=== PATIENT | female | born 1985 | race African-American/Black ===

== ENCOUNTER 2022-03-05 22:21 | Inpatient (IN) | payer SELFPAY ==
[~2022-03-05] VITALS: Ht 162.6 cm; Wt 75.0 kg
[2022-03-05] MEDS ORDERED: DEPO150I12 IM (23:08)
[2022-03-05] MEDS ORDERED: ONDANSETRON 4MG/2ML VIAL IV ONE (23:20)
[2022-03-05] MEDS: MORPHINE 4 MG/ML 1ML VIAL/SYRINGE IV PRN (23:35)
[2022-03-05 23:37] LABS: BASO % 0.1 % (0.0-1.0); EOS % 0.3 % (0.0-3.0); HEMATOCRIT 31.8 % (36.0-47.0); HEMOGLOBIN 10.2 g/dl (12.0-15.5); LYMPH # 1.8 10^3/uL (1.5-5.0); LYMPH % 16.4 % (24.0-44.0); MEAN CORPUSCULAR HEMOGLOBIN 24.1 pg (27.0-33.0); MEAN CORPUSCULAR HGB CONC 32.1 g/dl (32.0-36.5); MONO # 1.1 10^3/uL (0.0-0.8); MONO % 10.3 % (2.0-8.0); NEUTROPHILS # 7.7 10^3/uL (1.5-8.5); NEUTROPHILS % 72.3 % (36.0-66.0); PLATELET COUNT, AUTOMATED 315 10^3/uL (150-450); RED BLOOD COUNT 4.24 10^6/uL (4.00-5.40); WHITE BLOOD COUNT 10.7 10^3/uL (4.0-10.0)
[2022-03-06] VITALS (7 sets, daily range): BP systolic 100–145; BP diastolic 67–80
[2022-03-06 00:12] LABS: BLOOD UREA NITROGEN 14 MG/DL (7-18); CALCIUM LEVEL 9.2 MG/DL (8.5-10.1); CARBON DIOXIDE LEVEL 22 MEQ/L (21-32); CHLORIDE LEVEL 108 MEQ/L (98-107); CREATININE FOR GFR 0.76 MG/DL (0.55-1.30); GLOMERULAR FILTRATION RATE > 60.0 (>60); GLUCOSE, FASTING 103 MG/DL (70-100); POTASSIUM SERUM 4.1 MEQ/L (3.5-5.1); SODIUM LEVEL 141 MEQ/L (136-145)
[2022-03-06] MEDS: MORPHINE 4 MG/ML 1ML VIAL/SYRINGE IV PRN (00:30)
[2022-03-06 00:41] LABS: RSV AMPLIFICATION NEGATIVE (NEGATIVE)
[2022-03-06] MEDS ORDERED: HOME MED LIST COMPLETE! XX SCH (00:45)
[2022-03-06] MEDS ORDERED: NS 1,000 ML IV SCH ×2 (01:05→12:00)
[2022-03-06] MEDS ORDERED: HYDROMORPHONE HCL 0.5 MG/ 0.5 ML SYRINGE (J1170 PER 1) IV PRN ×2 (01:05→11:55)
[2022-03-06 06:21] LABS: HEMOGLOBIN 9.7 g/dl (12.0-15.5); MEAN CORPUSCULAR HEMOGLOBIN 23.3 pg (27.0-33.0); MEAN CORPUSCULAR HGB CONC 30.3 g/dl (32.0-36.5); MEAN CORPUSCULAR VOLUME 76.9 fl (80.0-96.0); PLATELET COUNT, AUTOMATED 300 10^3/uL (150-450); RED BLOOD COUNT 4.16 10^6/uL (4.00-5.40)
[2022-03-06 06:56] LABS: ALT/SGPT 61 U/L (12-78); BILIRUBIN,DIRECT 0.1 MG/DL (0.0-0.2); BILIRUBIN,TOTAL 0.5 MG/DL (0.2-1.0); TOTAL PROTEIN 7.2 GM/DL (6.4-8.2)
[2022-03-06] MEDS ORDERED: MORPHINE 2 MG/ML 1ML VIAL IV PRN ×2 (08:00)
[2022-03-06 08:48] LABS: BLOOD UREA NITROGEN 14 MG/DL (7-18); CALCIUM LEVEL 9.2 MG/DL (8.5-10.1); CARBON DIOXIDE LEVEL 24 MEQ/L (21-32); CHLORIDE LEVEL 111 MEQ/L (98-107); CREATININE FOR GFR 0.74 MG/DL (0.55-1.30); GLOMERULAR FILTRATION RATE > 60.0 (>60); GLUCOSE, FASTING 96 MG/DL (70-100); POTASSIUM SERUM 4.1 MEQ/L (3.5-5.1); SODIUM LEVEL 143 MEQ/L (136-145)
[2022-03-06] MEDS ORDERED: LIDOCAINE 1% MDV 20ML VIAL As Ordered ONE (08:58)
[2022-03-06] MEDS ORDERED: BUPIVACAINE HCL 0.25% 10ML VIAL As Ordered ONE (08:58)
[2022-03-06] MEDS ORDERED: TRANEXAMIC ACID 100 MG/ML 10ML VIAL As Ordered ONE (08:58)
[2022-03-06] MEDS ORDERED: ceFAZolin 1GM VIAL (J0690 PER 500MG) As Ordered ONE (09:00)
[2022-03-06] MEDS ORDERED: propofoL 200 MG/20 ML VIAL As Ordered ONE (09:10)
[2022-03-06] MEDS ORDERED: LIDOCAINE 2% 100MG/5ML SDV (FOR ANES.) As Ordered ONE (09:10)
[2022-03-06] MEDS ORDERED: fentaNYL 100 MCG/2 ML INJECTION As Ordered ONE (09:11)
[2022-03-06] MEDS ORDERED: MIDAZOLAM INJ 2MG/2ML VIAL (J2250 PER 1MG) As Ordered ONE (09:12)
[2022-03-06] MEDS ORDERED: PHENYLephrine 500MCG 5ML (100MCG/ML) SYRINGE As Ordered ONE (11:32)
[2022-03-06] MEDS ORDERED: KETOROLAC 60MG 2ML VIAL As Ordered ONE (11:32)
[2022-03-06] MEDS ORDERED: oxyCODONE 5MG TAB PO PRN (11:55)
[2022-03-06] MEDS ORDERED: fentaNYL 100 MCG/2 ML INJECTION IV PRN (11:55)
[2022-03-06] MEDS ORDERED: ONDANSETRON 4MG/2ML VIAL IV PRN (11:55)
[2022-03-06] MEDS ORDERED: LR 1,000 ML IV SCH (11:55)
[2022-03-06] MEDS ORDERED: ceFAZolin SOD 2 GM in IV 1 EA IV ONE (17:00)
[2022-03-06] MEDS ORDERED: ENOXAPARIN 40MG/0.4ML SYRINGE (J1650 PER 10MG) SC SCH (18:00)
[2022-03-06] MEDS ORDERED: MORPHINE 2 MG/ML 1ML VIAL IV STA (18:11)
[2022-03-06] MEDS ORDERED: PERC5TAB12 PO (18:58)
[2022-03-06] MEDS ORDERED: ASPI81CH33 PO (18:59)
[2022-03-06] MEDS ORDERED: RAMELTEON 8 MG TAB (ROZEREM) PO PRN (19:45)
[2022-03-06] MEDS ORDERED: hydrOXYzine 25 MG TAB PO ONE (20:10)
[2022-03-06] MEDS ORDERED: MORPHINE 2 MG/ML 1ML VIAL IV ONE (21:15)
[2022-03-06] MEDS: PERCOCET 5MG/325MG TAB PO PRN (22:38)
[2022-03-07 02:00] VITALS: BP 116/78
[2022-03-07] MEDS: MORPHINE 2 MG/ML 1ML VIAL IV PRN ×2 (03:16→07:33)
[2022-03-07] MEDS: PERCOCET 5MG/325MG TAB PO PRN ×3 (04:42→16:47)
[2022-03-07 06:00] VITALS: BP 106/78
[2022-03-07 07:43] LABS: BLOOD UREA NITROGEN 11 MG/DL (7-18); CALCIUM LEVEL 8.3 MG/DL (8.5-10.1); CARBON DIOXIDE LEVEL 25 MEQ/L (21-32); CHLORIDE LEVEL 106 MEQ/L (98-107); CREATININE FOR GFR 0.69 MG/DL (0.55-1.30); GLOMERULAR FILTRATION RATE > 60.0 (>60); GLUCOSE, FASTING 86 MG/DL (70-100); POTASSIUM SERUM 4.3 MEQ/L (3.5-5.1); SODIUM LEVEL 138 MEQ/L (136-145)
[2022-03-07 08:55] LABS: HEMATOCRIT 30.4 % (36.0-47.0); HEMOGLOBIN 9.4 g/dl (12.0-15.5); MEAN CORPUSCULAR HEMOGLOBIN 23.8 pg (27.0-33.0); MEAN CORPUSCULAR HGB CONC 30.9 g/dl (32.0-36.5); PLATELET COUNT, AUTOMATED 271 10^3/uL (150-450); RED BLOOD COUNT 3.95 10^6/uL (4.00-5.40); WHITE BLOOD COUNT 6.5 10^3/uL (4.0-10.0)
[2022-03-07] MEDS ORDERED: KETOROLAC 30 MG/ML 1ML VIAL IV ONE (09:00)
[2022-03-07 10:00] VITALS: BP 107/77
[2022-03-07 14:00] VITALS: BP 111/73
[2022-03-07] MEDS: IBUPROFEN 600MG TAB PO SCH ×2 (16:46→21:57)
[2022-03-07 18:00] VITALS: BP 116/76
[2022-03-07 22:00] VITALS: BP 113/76
[2022-03-08 02:00] VITALS: BP 103/70
[2022-03-08 05:57] LABS: HEMATOCRIT 33.1 % (36.0-47.0); HEMOGLOBIN 10.1 g/dl (12.0-15.5); MEAN CORPUSCULAR HEMOGLOBIN 23.3 pg (27.0-33.0); MEAN CORPUSCULAR HGB CONC 30.5 g/dl (32.0-36.5); MEAN CORPUSCULAR VOLUME 76.4 fl (80.0-96.0); PLATELET COUNT, AUTOMATED 282 10^3/uL (150-450); RED BLOOD COUNT 4.33 10^6/uL (4.00-5.40); WHITE BLOOD COUNT 5.4 10^3/uL (4.0-10.0)
[2022-03-08 06:00] VITALS: BP_SYST 113; BP_DIAS 70; BP_DIAS 76
[2022-03-08 06:29] LABS: ALBUMIN 2.9 GM/DL (3.2-5.2); ALT/SGPT 53 U/L (12-78); BILIRUBIN,TOTAL 0.3 MG/DL (0.2-1.0); BLOOD UREA NITROGEN 11 MG/DL (7-18); CALCIUM LEVEL 8.7 MG/DL (8.5-10.1); CARBON DIOXIDE LEVEL 25 MEQ/L (21-32); CHLORIDE LEVEL 108 MEQ/L (98-107); CREATININE FOR GFR 0.73 MG/DL (0.55-1.30); GLOMERULAR FILTRATION RATE > 60.0 (>60); GLUCOSE, FASTING 91 MG/DL (70-100); POTASSIUM SERUM 4.4 MEQ/L (3.5-5.1); SODIUM LEVEL 139 MEQ/L (136-145); TOTAL PROTEIN 6.7 GM/DL (6.4-8.2)
[2022-03-08] MEDS: IBUPROFEN 600MG TAB PO SCH ×3 (09:18→21:29)
[2022-03-08] MEDS: ENOXAPARIN 40MG/0.4ML SYRINGE (J1650 PER 10MG) SC SCH (09:19)
[2022-03-08 10:00] VITALS: BP 115/77
[2022-03-08 14:00] VITALS: BP 116/78
[2022-03-08] MEDS: PERCOCET 5MG/325MG TAB PO PRN (16:23)
[2022-03-08 20:00] VITALS: BP 119/80
[2022-03-08 22:00] VITALS: BP 119/80
[2022-03-09 02:00] VITALS: BP 110/73
[2022-03-09 06:00] VITALS: BP_SYST 110; BP_SYST 111; BP_DIAS 73
[2022-03-09 06:05] LABS: HEMATOCRIT 33.3 % (36.0-47.0); HEMOGLOBIN 10.3 g/dl (12.0-15.5); MEAN CORPUSCULAR HEMOGLOBIN 23.6 pg (27.0-33.0); MEAN CORPUSCULAR HGB CONC 30.9 g/dl (32.0-36.5); MEAN CORPUSCULAR VOLUME 76.4 fl (80.0-96.0); PLATELET COUNT, AUTOMATED 269 10^3/uL (150-450); RED BLOOD COUNT 4.36 10^6/uL (4.00-5.40); WHITE BLOOD COUNT 4.6 10^3/uL (4.0-10.0)
[2022-03-09 06:41] LABS: ALBUMIN 2.9 GM/DL (3.2-5.2); ALT/SGPT 68 U/L (12-78); BILIRUBIN,TOTAL 0.2 MG/DL (0.2-1.0); BLOOD UREA NITROGEN 18 MG/DL (7-18); CALCIUM LEVEL 8.7 MG/DL (8.5-10.1); CARBON DIOXIDE LEVEL 25 MEQ/L (21-32); CHLORIDE LEVEL 110 MEQ/L (98-107); CREATININE FOR GFR 0.71 MG/DL (0.55-1.30); GLOMERULAR FILTRATION RATE > 60.0 (>60); GLUCOSE, FASTING 97 MG/DL (70-100); POTASSIUM SERUM 4.2 MEQ/L (3.5-5.1); SODIUM LEVEL 141 MEQ/L (136-145); TOTAL PROTEIN 6.6 GM/DL (6.4-8.2)
[2022-03-09 10:00] VITALS: BP 114/72
[2022-03-09] MEDS: ENOXAPARIN 40MG/0.4ML SYRINGE (J1650 PER 10MG) SC SCH (10:54)
[2022-03-09] MEDS: IBUPROFEN 600MG TAB PO SCH ×3 (10:55→22:06)
[2022-03-09 14:00] VITALS: BP 116/73
[2022-03-09 18:00] VITALS: BP 130/92
[2022-03-09 22:10] VITALS: BP 133/89
[2022-03-10 04:00] VITALS: BP 116/72
[2022-03-10 06:01] LABS: HEMATOCRIT 34.3 % (36.0-47.0); HEMOGLOBIN 10.6 g/dl (12.0-15.5); MEAN CORPUSCULAR HEMOGLOBIN 23.6 pg (27.0-33.0); MEAN CORPUSCULAR HGB CONC 30.9 g/dl (32.0-36.5); MEAN CORPUSCULAR VOLUME 76.4 fl (80.0-96.0); PLATELET COUNT, AUTOMATED 301 10^3/uL (150-450); RED BLOOD COUNT 4.49 10^6/uL (4.00-5.40)
[2022-03-10 06:31] LABS: BLOOD UREA NITROGEN 18 MG/DL (7-18); CALCIUM LEVEL 9.4 MG/DL (8.5-10.1); CARBON DIOXIDE LEVEL 22 MEQ/L (21-32); CHLORIDE LEVEL 110 MEQ/L (98-107); CREATININE FOR GFR 0.62 MG/DL (0.55-1.30); GLOMERULAR FILTRATION RATE > 60.0 (>60); GLUCOSE, FASTING 103 MG/DL (70-100); POTASSIUM SERUM 4.3 MEQ/L (3.5-5.1); SODIUM LEVEL 140 MEQ/L (136-145)
[2022-03-10] MEDS: IBUPROFEN 600MG TAB PO SCH ×3 (09:40→23:10)
[2022-03-10 10:00] VITALS: BP 117/73
[2022-03-10 14:00] VITALS: BP 117/75
[2022-03-10] MEDS ORDERED: propofoL 500 MG/50 ML VIAL As Ordered ONE ×2 (16:10→18:35)
[2022-03-10] MEDS ORDERED: LIDOCAINE 2% 100MG/5ML SDV (FOR ANES.) As Ordered ONE (16:10)
[2022-03-10] MEDS ORDERED: fentaNYL 100 MCG/2 ML INJECTION As Ordered ONE ×2 (16:11→19:48)
[2022-03-10] MEDS ORDERED: MIDAZOLAM INJ 2MG/2ML VIAL (J2250 PER 1MG) As Ordered ONE (16:11)
[2022-03-10] MEDS ORDERED: VANCOMYCIN 1000MG/20ML VIAL As Ordered ONE ×2 (16:23→21:09)
[2022-03-10] MEDS ORDERED: ceFAZolin 2 GM/D5W 50 ML IV BAG (J0690 PER 500MG) As Ordered ONE ×2 (16:23→20:05)
[2022-03-10] MEDS ORDERED: TRANEXAMIC ACID 100 MG/ML 10ML VIAL As Ordered ONE ×2 (16:23→20:05)
[2022-03-10] MEDS ORDERED: BUPIVACAINE/EPIN 0.25% 30 ML VIAL As Ordered ONE (16:49)
[2022-03-10] MEDS ORDERED: LIDOCAINE 1% SDV 30ML VIAL As Ordered ONE (16:49)
[2022-03-10] MEDS ORDERED: KETAMINE HCL 200 MG/20 ML VIAL As Ordered ONE (20:25)
[2022-03-10] MEDS ORDERED: BUPIVACAINE LIPOSOME/PF 1.3% 20ML VIAL (13.3MG/ML)(EXPAREL) As Ordered ONE ×2 (20:43→20:59)
[2022-03-10] MEDS ORDERED: propofoL 200 MG/20 ML VIAL As Ordered ONE (22:10)
[2022-03-10] MEDS ORDERED: HYDROMORPHONE HCL 0.5 MG/ 0.5 ML SYRINGE (J1170 PER 1) IV PRN (22:35)
[2022-03-10] MEDS ORDERED: ONDANSETRON 4MG/2ML VIAL IV PRN (22:35)
[2022-03-10] MEDS ORDERED: INSULIN LISPRO (NovoLOG) PER UNIT SC PRN (22:35)
[2022-03-10] MEDS ORDERED: oxyCODONE 5MG TAB PO PRN (22:35)
[2022-03-10] MEDS ORDERED: METOCLOPRAMIDE INJ 10MG/2ML VIAL (J2765 PER 1) IV PRN (22:35)
[2022-03-10] MEDS ORDERED: LR 1,000 ML IV SCH (22:35)
[2022-03-10] MEDS ORDERED: fentaNYL 100 MCG/2 ML INJECTION IV PRN (22:35)
[2022-03-10 22:50] VITALS: BP 119/80
[2022-03-10] MEDS: PERCOCET 5MG/325MG TAB PO PRN (23:10)
[2022-03-10 23:20] VITALS: BP 132/94
[2022-03-11] VITALS (9 sets, daily range): BP systolic 113–136; BP diastolic 74–88
[2022-03-11] MEDS ORDERED: MORPHINE 4 MG/ML 1ML VIAL/SYRINGE IV ONE (01:15)
[2022-03-11] MEDS ORDERED: KETOROLAC 30 MG/ML 1ML VIAL IV ONE (02:50)
[2022-03-11] MEDS: PERCOCET 5MG/325MG TAB PO PRN ×4 (06:17→21:28)
[2022-03-11] MEDS: ceFAZolin SOD 2 GM in IV 1 EA IV SCH ×3 (06:18→21:25)
[2022-03-11 06:23] LABS: HEMATOCRIT 30.6 % (36.0-47.0); HEMOGLOBIN 9.3 g/dl (12.0-15.5); MEAN CORPUSCULAR HEMOGLOBIN 23.4 pg (27.0-33.0); MEAN CORPUSCULAR HGB CONC 30.4 g/dl (32.0-36.5); MEAN CORPUSCULAR VOLUME 77.1 fl (80.0-96.0); PLATELET COUNT, AUTOMATED 253 10^3/uL (150-450); RED BLOOD COUNT 3.97 10^6/uL (4.00-5.40); WHITE BLOOD COUNT 7.2 10^3/uL (4.0-10.0)
[2022-03-11 06:42] LABS: BLOOD UREA NITROGEN 17 MG/DL (7-18); CARBON DIOXIDE LEVEL 22 MEQ/L (21-32); CHLORIDE LEVEL 109 MEQ/L (98-107); CREATININE FOR GFR 0.76 MG/DL (0.55-1.30); GLOMERULAR FILTRATION RATE > 60.0 (>60); GLUCOSE, FASTING 134 MG/DL (70-100); POTASSIUM SERUM 4.1 MEQ/L (3.5-5.1); SODIUM LEVEL 142 MEQ/L (136-145)
[2022-03-11] MEDS: ASPIRIN 81MG ENTERIC TABLET PO SCH (08:57)
[2022-03-11] MEDS: IBUPROFEN 600MG TAB PO SCH ×3 (08:57→21:28)
[2022-03-12] MEDS: PERCOCET 5MG/325MG TAB PO PRN ×4 (01:28→22:06)
[2022-03-12 02:00] VITALS: BP 109/71
[2022-03-12 06:00] VITALS: BP 96/56
[2022-03-12 07:04] LABS: HEMATOCRIT 31.5 % (36.0-47.0); HEMOGLOBIN 9.7 g/dl (12.0-15.5); MEAN CORPUSCULAR HEMOGLOBIN 23.4 pg (27.0-33.0); MEAN CORPUSCULAR HGB CONC 30.8 g/dl (32.0-36.5); MEAN CORPUSCULAR VOLUME 76.1 fl (80.0-96.0); PLATELET COUNT, AUTOMATED 262 10^3/uL (150-450); RED BLOOD COUNT 4.14 10^6/uL (4.00-5.40); WHITE BLOOD COUNT 11.3 10^3/uL (4.0-10.0)
[2022-03-12 07:33] LABS: BLOOD UREA NITROGEN 12 MG/DL (7-18); CALCIUM LEVEL 8.7 MG/DL (8.5-10.1); CARBON DIOXIDE LEVEL 22 MEQ/L (21-32); CHLORIDE LEVEL 108 MEQ/L (98-107); CREATININE FOR GFR 0.68 MG/DL (0.55-1.30); GLOMERULAR FILTRATION RATE > 60.0 (>60); GLUCOSE, FASTING 95 MG/DL (70-100); POTASSIUM SERUM 4.2 MEQ/L (3.5-5.1); SODIUM LEVEL 138 MEQ/L (136-145)
[2022-03-12] MEDS: ASPIRIN 81MG ENTERIC TABLET PO SCH (08:38)
[2022-03-12] MEDS: IBUPROFEN 600MG TAB PO SCH ×3 (08:39→22:05)
[2022-03-12] MEDS ORDERED: PERCOCET 5MG/325MG TAB PO PRN (12:50)
[2022-03-12 14:00] VITALS: BP 116/71
[2022-03-12 18:00] VITALS: BP 117/71
[2022-03-12 21:15] VITALS: BP 113/67
[2022-03-13 02:00] VITALS: BP 110/67
[2022-03-13 06:00] VITALS: BP 110/72
[2022-03-13 06:26] LABS: BLOOD UREA NITROGEN 14 MG/DL (7-18); CALCIUM LEVEL 8.9 MG/DL (8.5-10.1); CARBON DIOXIDE LEVEL 22 MEQ/L (21-32); CHLORIDE LEVEL 112 MEQ/L (98-107); CREATININE FOR GFR 0.58 MG/DL (0.55-1.30); GLOMERULAR FILTRATION RATE > 60.0 (>60); GLUCOSE, FASTING 101 MG/DL (70-100); POTASSIUM SERUM 4.6 MEQ/L (3.5-5.1); SODIUM LEVEL 142 MEQ/L (136-145)
[2022-03-13 06:27] LABS: HEMATOCRIT 35.1 % (36.0-47.0); HEMOGLOBIN 10.2 g/dl (12.0-15.5); MEAN CORPUSCULAR HEMOGLOBIN 23.8 pg (27.0-33.0); MEAN CORPUSCULAR HGB CONC 29.1 g/dl (32.0-36.5); MEAN CORPUSCULAR VOLUME 81.8 fl (80.0-96.0); PLATELET COUNT, AUTOMATED 260 10^3/uL (150-450); RED BLOOD COUNT 4.29 10^6/uL (4.00-5.40); WHITE BLOOD COUNT 8.9 10^3/uL (4.0-10.0)
[2022-03-13] MEDS: PERCOCET 5MG/325MG TAB PO PRN ×3 (06:50→13:00)
[2022-03-13] MEDS ORDERED: PERCOCET 5MG/325MG TAB PO ONE (08:05)
[2022-03-13] MEDS: IBUPROFEN 600MG TAB PO SCH (09:04)
[2022-03-13] MEDS: ASPIRIN 81MG ENTERIC TABLET PO SCH (09:04)
== END 2022-03-13 15:20 | disposition home or self-care (01) | DRG 313 ==
LOC: M ED 22:21 → M ED INP 03-06 01:02 → ENRESERV 03-06 02:08 → M MSPAV 03-06 02:47
PROVIDERS: ADMIT Internal Medicine; ATTEND Internal Medicine
PROC: 0QSK35Z Reposition Left Fibula with External Fixation Device, Percutaneous Approach (ICD-10-PCS; 2022-03-06)
PROC: 0QSH35Z Reposition Left Tibia with External Fixation Device, Percutaneous Approach (ICD-10-PCS; principal; 2022-03-06 08:30)
PROC: 2W5RXYZ Removal of Other Device on Left Lower Leg (ICD-10-PCS; 2022-03-10)
DX: S82.302A Unspecified fracture of lower end of left tibia, initial encounter for closed fracture (principal); S82.832A Other fracture of upper and lower end of left fibula, initial encounter for closed fracture; R00.0 Tachycardia, unspecified; W17.89XA Other fall from one level to another, initial encounter; Y92.008 Other place in unspecified non-institutional (private) residence as the place of occurrence of the external cause; Y93.H9 Activity, other involving exterior property and land maintenance, building and construction; Y99.8 Other external cause status

== ENCOUNTER → 2022-03-17 | Outpatient (CLI) | payer SELFPAY ==
[~2022-03-17] MED LIST: ASPI81CH33 PO; DEPO150I12 IM; PERC5TAB12 PO
== END ==
LOC: M SOG 09:07
PROVIDERS: ATTEND Orthopaedic Surgery
DX: Z48.89 Encounter for other specified surgical aftercare (principal)

== ENCOUNTER → 2022-04-28 | Outpatient (CLI) | payer SELFPAY | LOC: M SOG 09:36 | PROVIDERS: ATTEND Student in an Organized Health Care Education/Training Program | DX: S82.302D Unspecified fracture of lower end of left tibia, subsequent encounter for closed fracture with routine healing (principal); X58.XXXD Exposure to other specified factors, subsequent encounter; Y92.89 Other specified places as the place of occurrence of the external cause ==

== ENCOUNTER → 2022-06-09 | Outpatient (CLI) | payer SELFPAY | LOC: M SOG 09:19 | PROVIDERS: ATTEND Student in an Organized Health Care Education/Training Program | DX: Z48.89 Encounter for other specified surgical aftercare (principal) ==

== ENCOUNTER → 2022-07-07 | Outpatient (CLI) | payer SELFPAY | LOC: M SOG 08:34 | PROVIDERS: ATTEND Student in an Organized Health Care Education/Training Program | DX: Z48.89 Encounter for other specified surgical aftercare (principal); S82.302D Unspecified fracture of lower end of left tibia, subsequent encounter for closed fracture with routine healing ==

== ENCOUNTER → 2022-09-29 | Outpatient (CLI) | payer SELFPAY | LOC: M SOG 07:55 | PROVIDERS: ATTEND Student in an Organized Health Care Education/Training Program | DX: S82.302D Unspecified fracture of lower end of left tibia, subsequent encounter for closed fracture with routine healing (principal) ==

== ENCOUNTER → 2024-09-11 | Outpatient (CLI) | payer SELFPAY | LOC: M WHC 09:15 | PROVIDERS: ATTEND Internal Medicine | DX: N63.23 Unspecified lump in the left breast, lower outer quadrant (principal); R92.322 Mammographic fibroglandular density, left breast | CPT/HCPCS: 76642; 77066; G0279 ==

== ENCOUNTER → 2025-02-20 | Outpatient (CLI) | payer SELFPAY ==
[2025-02-20 10:12] VITALS: TEMP 98.3
[2025-02-20 10:53] VITALS: BP 126/74; O2SAT 99
== END ==
LOC: M WHCPRO 10:02
PROVIDERS: ATTEND Surgery
DX: N63.23 Unspecified lump in the left breast, lower outer quadrant (principal)